=== PATIENT | female | born 1940 | race American Indian/Alaskan Native ===

== ENCOUNTER 2021-11-17 13:43 | Outpatient (CLI) | payer MEDICARE ==
--- NOTE | 2021-11-17 16:03 | XRay Report ---
BILATERAL KNEES 3 VIEWS INDICATION / CLINICAL INFORMATION: BILATERAL KNEE PAIN COMPARISON: None available. FINDINGS: BONES and JOINT(S): No acute fracture or subluxation. No significant arthritis. SOFT TISSUES: No significant abnormality. ADDITIONAL FINDINGS: None. IMPRESSION: No significant abnormality to explain the patient's knee pain. Signer Name: Alen Chavez MD Signed: 11/17/2021 3:59 PM Workstation Name: [id number]
== END 2021-11-17 13:44 | disposition home or self-care (01) ==
LOC: XRAY 13:43
PROVIDERS: ATTEND Orthopaedic Surgery
DX: M25.561 Pain in right knee (principal); M25.562 Pain in left knee